=== PATIENT | female | born 1985 | race Caucasian/White ===

== ENCOUNTER 2017-02-01 18:37 | Emergency (ER) | payer MEDICAID ==
--- NOTE | 2017-02-01 20:27 | ER Document Report ---
ED Medical Screen (RME) - General Stated Complaint: WEAKNESS Notes: She states she was started on Risperdal, Cogentin and Klonopin one week ago. Has been having signs of dehydration to include dry mouth and weakness. Eyes fever but does have cough and congestion. States was re-seen by psych yesterday and medication dosages decreased. I have greeted and performed a rapid initial assessment of this patient. A comprehensive ED assessment and evaluation of the patient, analysis of test results and completion of the medical decision making process will be conducted by additional ED providers. - Related Data Allergies/Adverse Reactions: Penicillins Allergy (Severe, Verified 02/01/17 20:21) Anaphylaxis Physical Exam - Vital signs Vitals: Temp Pulse Resp BP Pulse Ox 98.6 F 87 19 125/71 97 02/01/17 19:48 02/01/17 19:48 02/01/17 19:48 02/01/17 19:48 02/01/17 19:48 - General General appearance: Appears well, Alert In distress: None Course - Vital Signs Vital signs: Temp Pulse Resp BP Pulse Ox 98.6 F 87 19 125/71 97 02/01/17 19:48 02/01/17 19:48 02/01/17 19:48 02/01/17 19:48 02/01/17 19:48
--- NOTE | 2017-02-01 21:49 | ER Document Report ---
HPI - HPI Onset: Other - 1 week Onset/Duration: Intermittent Pain Level: 4 Context: 31-year-old female recently moved here from [facility] was started back on Respinol, Cogentin, Klonopin for schizoaffective disorder and anxiety week and a half ago. She went back to mental health [facility] on Saturday and they increased her Risperdal to 2 mg at night because she was still hearing voices. The Cogentin is 2 mg per night. Klonopin is 0.5 mg twice a day. The past 2 days she has increased dizziness, unsteady gait, slurred speech with a mild headache and sore throat. She was told by [facility] today that if nothing else is wrong with her then they will adjust her medications on Saturday. They're here in the emergency room to see if anything is wrong with her. Female partner. She also takes BuSpar, Wellbutrin, Neurontin, Lexapro, and Naprosyn. Associated Symptoms: None Exacerbated by: Denies Relieved by: Denies Similar symptoms previously: No Recently seen / treated by doctor: No - ROS ROS below otherwise negative: Yes Systems Reviewed and Negative: Yes All other systems reviewed and negative - DERM Skin Color: Normal, [place] Past Medical History - General Information source: Patient, Relative - - Social History Smoking Status: Current Every Day Smoker Chew tobacco use (# tins/day): No Frequency of alcohol use: None Drug Abuse: None Lives with: Spouse/Significant other Family History: Reviewed & Not Pertinent - Medical History Medical History: Negative Renal/ Medical History: Denies: Hx Peritoneal Dialysis Surgical Hx: Negative Vertical Provider Document - CONSTITUTIONAL Agree With Documented VS: Yes Exam Limitations: No Limitations - HEENT HEENT: Normocephalic - NECK Neck: Supple. negative: Lymphadenopathy-Left, Lymphadenopathy-Right - RESPIRATORY Respiratory: Breath Sounds Normal, No Respiratory Distress O2 Sat by Pulse Oximetry: 97 - CARDIOVASCULAR Cardiovascular: Regular Rate, Regular Rhythm - GI/ABDOMEN Gastrointestinal: Abdomen Soft, Abdomen Non-Tender, No Organomegaly - MUSCULOSKELETAL/EXTREMETIES Musculoskeletal/Extremeties: MAEW, FROM - NEURO Level of Consciousness: Awake, Alert, Appropriate. negative: Slow to Respond, Confused, Agitated, Sedated Notes: gait stable - DERM Integumentary: Warm, Dry Course - Re-evaluation Re-evalutation: 02/01/17 23:10 Urinalysis shows RBCs and she is on her menses. No bacteria. Lab trying to get the blood. 02/02/17 00:24 Labs are all normal. I will instruct the patient to not take the Klonopin that this may be causing the unsteadiness in combination with the other medication - Vital Signs Vital signs: Temp Pulse Resp BP Pulse Ox 98.6 F 87 19 125/71 97 02/01/17 19:48 02/01/17 19:48 02/01/17 19:48 02/01/17 19:48 02/01/17 19:48 - Laboratory Result Diagrams: 02/01/17 23:30 02/01/17 23:30 Discharge - Discharge Clinical Impression: Dizziness, Unsteady gait, Medication side effect Condition: Good Disposition: HOME, SELF-CARE Instructions: Dizziness ([facility]) Additional Instructions: Stop the Klonopin Return to the emergency room if worse See [facility] on saturday for medication adjustment Please complete the patient satisfaction survey if you get one, and return it.. If you do not receive a survey, then you can go to the [facility] website, [email or web address] and place your comments about your very good care. Thank you very much. It was a pleasure being your medical provider today.
[2017-02-01 22:34] LABS: APPEARANCE,URINE SLIGHTLY-CLOUDY; BILIRUBIN,URINE NEGATIVE (NEGATIVE); GLUCOSE, URINE NEGATIVE (NEGATIVE); KETONES,URINE NEGATIVE (NEGATIVE); LEUKOCYTE ESTERASE,URINE TRACE (NEGATIVE); NITRITE,URINE NEGATIVE (NEGATIVE); PROTEIN,URINE 30 mg/dL (NEGATIVE); URINE SPECIFIC GRAVITY 1.021; UROBILINOGEN,URINE NEGATIVE mg/dL (<2.0)
[2017-02-01 22:54] LABS: URINE BARBITURATES SCREEN NEGATIVE; URINE METHADONE SCREEN NEGATIVE; URINE OPIATES LOW NEGATIVE; URINE PHENCYCLIDINE SCREEN NEGATIVE
[2017-02-01 23:40] LABS: ABSOLUTE EOSINOPHILS # (AUTO) 0.3 10^3/uL (0.0-0.6); ABSOLUTE LYMPHOCYTES (AUTO) 2.7 10^3/uL (0.5-4.7); ABSOLUTE MONOCYTES (AUTO) 0.5 10^3/uL (0.1-1.4); BASOPHILS % (AUTO) 0.2 % (0-2); EOSINOPHILS % (AUTO) 4.2 % (0-6); HEMATOCRIT 35.9 % (36.0-47.0); HEMOGLOBIN 11.5 g/dL (12.0-15.5); HGB HCT DIFFERENCE -1.4; LYMPHOCYTES % (AUTO) 35.3 % (13-45); MEAN CORPUSCULAR HEMOGLOBIN 25.4 pg (27.0-33.4); MEAN CORPUSCULAR HGB CONC 31.9 g/dL (32.0-36.0); MEAN CORPUSCULAR VOLUME 80 fl (80-97); MONOCYTES % (AUTO) 7.1 % (3-13); RED BLOOD COUNT 4.51 10^6/uL (3.72-5.28); RED CELL DISTRIBUTION WIDTH 16.5 % (11.5-14.0); SEGMENTED NEUTROPHILS % (AUTO) 53.2 % (42-78); WHITE BLOOD COUNT 7.5 10^3/uL (4.0-10.5)
[2017-02-01 23:57] LABS: ALANINE AMINOTRANSFERASE 30 U/L (9-52); ALBUMIN 3.7 g/dL (3.5-5.0); ALKALINE PHOSPHATASE 61 U/L (38-126); ANION GAP 8 (5-19); ASPARTATE AMINO TRANSFERASE 25 U/L (14-36); BILIRUBIN,TOTAL 0.2 mg/dL (0.2-1.3); BLOOD UREA NITROGEN 15 mg/dL (7-20); CALCIUM 8.8 mg/dL (8.4-10.2); CARBON DIOXIDE 25 mmol/L (22-30); CHLORIDE 108 mmol/L (98-107); CREATININE RESULT 0.71 mg/dL (0.52-1.25); GLUCOSE 84 mg/dL (75-110); POTASSIUM 4.4 mmol/L (3.6-5.0); SODIUM 140.8 mmol/L (137-145); TOTAL PROTEIN 6.4 g/dL (6.3-8.2)
[2017-02-01 23:59] LABS: ALCOHOL < 10 mg/dL (NONE DETECTED)
[2017-02-02 00:44] VITALS: BP 124/81
== END 2017-02-02 00:40 | disposition home or self-care (01) ==
LOC: ER 18:37
DX: R42 Dizziness and giddiness (principal); R26.81 Unsteadiness on feet; T50.905A Adverse effect of unspecified drugs, medicaments and biological substances, initial encounter; R47.81 Slurred speech; R51 Headache; J02.9 Acute pharyngitis, unspecified; F25.9 Schizoaffective disorder, unspecified; F41.9 Anxiety disorder, unspecified; F17.200 Nicotine dependence, unspecified, uncomplicated; Z79.899 Other long term (current) drug therapy
CPT/HCPCS: 36415; 80053; 80307; 81001; 84703; 85025; 87070; 87086; 87880; 99283

== ENCOUNTER 2017-02-04 18:21 | Emergency (ER) | payer MEDICAID ==
--- NOTE | 2017-02-04 19:26 | ER Document Report ---
ED General - General Chief Complaint: Altered Mental Status Stated Complaint: ALTERED MENTAL STATUS Mode of Arrival: Ambulatory Information source: Patient, Relative Notes: This is a 31-year-old female with a history of schizoaffective disorder and anxiety who presents for evaluation of altered mental status. Of note, patient just recently moved to the area and was recently placed back on her maintenance psychiatric medications to include Risperdal, Cogentin, Klonopin. She was seen here 3 days ago for unsteadiness and increased fatigue and at that point had a normal workup and was recommended to stop her Klonopin. She was instructed to follow-up with her psychiatric provider at [facility] today. However patient's spouse states that it were unable to get appointment today but she does have an appointment tomorrow for possible medication adjustment. Today, the patient to kidnap from [id number]. Upon awakening from her nap patient's spouse states that the patient was acting differently. Patient is not recognizing her life, and is not able to say the date correctly. Per the , the patient was adamant that the year was 2008. Reportedly this is a year of trauma for the patient and this is where she "returns to" from time to time. Patient's states that she just wants to make sure that medically everything is okay before they follow up with psychiatry tomorrow. Patient currently is very comfortable and calm. She states she has no complaints. She adamantly denies any thoughts of hurting herself or any else. - Related Data Allergies/Adverse Reactions: Penicillins Allergy (Severe, Verified 02/01/17 20:21) Anaphylaxis Past Medical History - General Information source: Patient, Relative - Social History Smoking Status: Former Smoker Family History: Reviewed & Not Pertinent Renal/ Medical History: Denies: Hx Peritoneal Dialysis - Immunizations Hx Diphtheria, Pertussis, Tetanus Vaccination: Yes Review of Systems - Review of Systems -: Yes ROS unobtainable due to patient's medical condition Physical Exam - Vital signs Vitals: Temp Pulse Resp BP Pulse Ox 98.1 F 91 18 136/85 H 96 02/04/17 18:26 02/04/17 18:26 02/04/17 18:26 02/04/17 18:26 02/04/17 18:26 - Notes Notes: PHYSICAL EXAMINATION: GENERAL: Well-appearing, obese hirsute adult female conversant and in no acute distress. HEAD: Atraumatic, normocephalic. EYES: Pupils equal round and reactive to light, extraocular movements intact, sclera anicteric, conjunctiva are normal. ENT: nares patent, oropharynx clear without exudates. Moist mucous membranes. NECK: Normal range of motion, supple without lymphadenopathy LUNGS: Breath sounds clear to auscultation bilaterally and equal. No wheezes rales or rhonchi. HEART: Regular rate and rhythm without murmurs ABDOMEN: Soft, nontender, normoactive bowel sounds. No guarding, no rebound. No masses appreciated. EXTREMITIES: Normal range of motion NEUROLOGICAL: Alert to person and place. States the year correctly but states "it's only because she already told me the date." She tells me she does not remember that the person with her is her . Cranial nerves grossly intact. Normal speech. No gross focal motor or sensory deficit appreciated. PSYCH: Normal mood, flat affect SKIN: Warm, Dry, normal turgor, no rashes or lesions noted. Course - Re-evaluation Re-evalutation: 02/04/17 22:19 Patient was reexamined and at this time she states that her memory has returned. She recognizes her spouse and she is alert and oriented 4. Again she denies any thoughts of hurting herself or others. Her states that something similar has happened in the past and it was secondary to a trauma response which took her back to the year 2008. Given that the patient is back to her baseline mental status, is not suicidal or a danger to herself or anyone else, and has scheduled psychiatric follow-up in the morning, she is deemed appropriate for discharge and outpatient follow-up. Patient in her family are very comfortable with this plan and questions were answered. - Vital Signs Vital signs: Temp Pulse Resp BP Pulse Ox 98.1 F 91 18 136/85 H 96 02/04/17 18:26 02/04/17 18:26 02/04/17 18:26 02/04/17 18:26 02/04/17 18:26 - Laboratory Result Diagrams: 02/04/17 20:58 02/04/17 20:58 Laboratory results interpreted by me: 02/04/17 20:58 Hgb 11.6 L Hct 35.6 L MCV 78 L MCH 25.5 L RDW 16.1 H Discharge - Discharge Clinical Impression: Memory loss Condition: Stable Disposition: HOME, SELF-CARE Additional Instructions: Continue your home medications as already prescribed. Keep your follow-up appointment tomorrow morning at the [facility] as already scheduled. Return to the emergency department for any worsening symptoms or concerns.
[2017-02-04 20:54] LABS: APPEARANCE,URINE CLEAR; BILIRUBIN,URINE NEGATIVE (NEGATIVE); GLUCOSE, URINE NEGATIVE (NEGATIVE); KETONES,URINE NEGATIVE (NEGATIVE); LEUKOCYTE ESTERASE,URINE NEGATIVE (NEGATIVE); NITRITE,URINE NEGATIVE (NEGATIVE); PROTEIN,URINE NEGATIVE (NEGATIVE); URINE SPECIFIC GRAVITY 1.011; UROBILINOGEN,URINE NEGATIVE mg/dL (<2.0)
[2017-02-04] MEDS ORDERED: ACETAMINOPHEN 325 MG TABLET PO ONE (21:05)
[2017-02-04] MEDS ORDERED: ACETAMINOPHEN 325 MG TABLET ONE (21:07)
[2017-02-04 21:10] LABS: URINE BARBITURATES SCREEN NEGATIVE; URINE METHADONE SCREEN NEGATIVE; URINE OPIATES LOW NEGATIVE; URINE PHENCYCLIDINE SCREEN NEGATIVE
[2017-02-04 21:20] LABS: ABSOLUTE BASOPHILS # (AUTO) 0.1 10^3/uL (0.0-0.2); ABSOLUTE EOSINOPHILS # (AUTO) 0.3 10^3/uL (0.0-0.6); ABSOLUTE LYMPHOCYTES (AUTO) 2.2 10^3/uL (0.5-4.7); ABSOLUTE MONOCYTES (AUTO) 0.5 10^3/uL (0.1-1.4); ABSOLUTE NEUT (AUTO) 4.9 10^3/uL (1.7-8.2); EOSINOPHILS % (AUTO) 3.8 % (0-6); HEMATOCRIT 35.6 % (36.0-47.0); HEMOGLOBIN 11.6 g/dL (12.0-15.5); HGB HCT DIFFERENCE -0.8; LYMPHOCYTES % (AUTO) 27.4 % (13-45); MEAN CORPUSCULAR HEMOGLOBIN 25.5 pg (27.0-33.4); MEAN CORPUSCULAR HGB CONC 32.7 g/dL (32.0-36.0); MEAN CORPUSCULAR VOLUME 78 fl (80-97); MONOCYTES % (AUTO) 5.8 % (3-13); RED BLOOD COUNT 4.55 10^6/uL (3.72-5.28); RED CELL DISTRIBUTION WIDTH 16.1 % (11.5-14.0); WHITE BLOOD COUNT 7.8 10^3/uL (4.0-10.5)
[2017-02-04 21:34] LABS: ALANINE AMINOTRANSFERASE 31 U/L (9-52); ALBUMIN 3.8 g/dL (3.5-5.0); ALKALINE PHOSPHATASE 78 U/L (38-126); ANION GAP 10 (5-19); ASPARTATE AMINO TRANSFERASE 27 U/L (14-36); BILIRUBIN,DIRECT 0.1 mg/dL (0.0-0.4); BILIRUBIN,TOTAL 0.3 mg/dL (0.2-1.3); BLOOD UREA NITROGEN 11 mg/dL (7-20); CALCIUM 9.1 mg/dL (8.4-10.2); CARBON DIOXIDE 28 mmol/L (22-30); CHLORIDE 105 mmol/L (98-107); CREATININE RESULT 0.72 mg/dL (0.52-1.25); GLUCOSE 86 mg/dL (75-110); POTASSIUM 4.5 mmol/L (3.6-5.0); SODIUM 143.2 mmol/L (137-145); TOTAL PROTEIN 6.6 g/dL (6.3-8.2)
[2017-02-04 21:35] LABS: ALCOHOL < 10 mg/dL (NONE DETECTED)
[2017-02-04 22:46] VITALS: BP 107/59
== END 2017-02-04 22:51 | disposition home or self-care (01) ==
LOC: ER 18:21
DX: R41.3 Other amnesia (principal); F25.9 Schizoaffective disorder, unspecified; F41.9 Anxiety disorder, unspecified; Z88.0 Allergy status to penicillin; Z87.891 Personal history of nicotine dependence
CPT/HCPCS: 99285; 36415; 80307 ×2; 85025; 81025; 80053; 81001; J3490

== ENCOUNTER 2017-02-09 21:24 | Emergency (ER) | payer MEDICAID ==
[2017-02-09 21:30] VITALS: BP 141/46
--- NOTE | 2017-02-09 21:40 | ER Document Report ---
ED Medical Screen (RME) - General Chief Complaint: Shoulder Pain Stated Complaint: SHOULDER/BACK PAIN Mode of Arrival: Ambulatory Information source: Patient Notes: Patient presents to the emergency department with low back pain left shoulder pain. Reports history of chronic back pain. She reports she takes Neurontin for chronic pain and anxiety. Denies trauma. Patient moving left arm without problems I have greeted and performed a rapid initial assessment of this patient. A comprehensive ED assessment and evaluation of the patient, analysis of test results and completion of the medical decision making process will be conducted by additional ED providers. - Related Data Allergies/Adverse Reactions: Penicillins Allergy (Severe, Verified 02/01/17 20:21) Anaphylaxis Past Medical History Renal/ Medical History: Denies: Hx Peritoneal Dialysis Psychiatric Medical History: Reports: Hx Bipolar Disorder, Hx Schizophrenia - Immunizations Hx Diphtheria, Pertussis, Tetanus Vaccination: Yes Physical Exam - Vital signs Vitals: Temp Pulse Resp BP Pulse Ox 98.0 F 90 16 141/46 H 98 02/09/17 21:29 02/09/17 21:29 02/09/17 21:29 02/09/17 21:29 02/09/17 21:29 Course - Vital Signs Vital signs: Temp Pulse Resp BP Pulse Ox 98.0 F 90 16 141/46 H 98 02/09/17 21:29 02/09/17 21:29 02/09/17 21:29 02/09/17 21:29 02/09/17 21:29
== END 2017-02-10 00:20 | disposition left against medical advice (07) ==
LOC: ER 21:24
DX: Z53.9 Procedure and treatment not carried out, unspecified reason (principal); M25.512 Pain in left shoulder; M54.9 Dorsalgia, unspecified; G89.29 Other chronic pain; Z79.899 Other long term (current) drug therapy
CPT/HCPCS: 99281

== ENCOUNTER 2017-06-11 12:21 | Emergency (ER) | payer OTHER, MEDICAID ==
--- NOTE | 2017-06-11 12:36 | ER Document Report ---
ED Medical Screen (RME) - General Chief Complaint: Suicidal Ideation Stated Complaint: PSYCH EVALUATION Time Seen by Provider: 06/11/17 12:33 Notes: Patient states that she is having problems with feeling suicidal and hearing voices. She denies any ingestions. TRAVEL OUTSIDE OF THE [place] IN LAST 30 DAYS: No - Related Data Allergies/Adverse Reactions: Penicillins Allergy (Severe, Verified 06/11/17 12:23) Anaphylaxis Past Medical History Renal/ Medical History: Denies: Hx Peritoneal Dialysis Psychiatric Medical History: Reports: Hx Bipolar Disorder, Hx Schizophrenia - Immunizations Hx Diphtheria, Pertussis, Tetanus Vaccination: Yes Physical Exam - Vital signs Vitals: Temp Pulse Resp BP Pulse Ox 98.3 F 112 H 24 H 151/85 H 97 06/11/17 12:25 06/11/17 12:25 06/11/17 12:25 06/11/17 12:25 06/11/17 12:25 Course - Vital Signs Vital signs: Temp Pulse Resp BP Pulse Ox 98.3 F 112 H 24 H 151/85 H 97 06/11/17 12:25 06/11/17 12:25 06/11/17 12:25 06/11/17 12:25 06/11/17 12:25
--- NOTE | 2017-06-11 12:53 | EKG REPORT ---
SEVERITY:- BORDERLINE ECG - SINUS RHYTHM INFERIOR Q WAVES, PROBABLY NORMAL VARIATION : Confirmed by: Cindy Lauren MD 11-Jun-2017 12:52:29
[2017-06-11 13:11] LABS: ABSOLUTE BASOPHILS # (AUTO) 0.1 10^3/uL (0.0-0.2); ABSOLUTE EOSINOPHILS # (AUTO) 0.1 10^3/uL (0.0-0.6); ABSOLUTE LYMPHOCYTES (AUTO) 1.6 10^3/uL (0.5-4.7); ABSOLUTE MONOCYTES (AUTO) 0.3 10^3/uL (0.1-1.4); ABSOLUTE NEUT (AUTO) 5.3 10^3/uL (1.7-8.2); BASOPHILS % (AUTO) 1.2 % (0-2); EOSINOPHILS % (AUTO) 1.8 % (0-6); HEMATOCRIT 35.1 % (36.0-47.0); HEMOGLOBIN 11.4 g/dL (12.0-15.5); HGB HCT DIFFERENCE -0.9; MEAN CORPUSCULAR HEMOGLOBIN 24.9 pg (27.0-33.4); MEAN CORPUSCULAR HGB CONC 32.5 g/dL (32.0-36.0); MEAN CORPUSCULAR VOLUME 77 fl (80-97); MONOCYTES % (AUTO) 3.9 % (3-13); RED BLOOD COUNT 4.59 10^6/uL (3.72-5.28); RED CELL DISTRIBUTION WIDTH 17.6 % (11.5-14.0); SEGMENTED NEUTROPHILS % (AUTO) 71.1 % (42-78); WHITE BLOOD COUNT 7.5 10^3/uL (4.0-10.5)
[2017-06-11 13:23] LABS: APPEARANCE,URINE SLIGHTLY-CLOUDY; BILIRUBIN,URINE NEGATIVE (NEGATIVE); GLUCOSE, URINE NEGATIVE (NEGATIVE); KETONES,URINE NEGATIVE (NEGATIVE); LEUKOCYTE ESTERASE,URINE NEGATIVE (NEGATIVE); NITRITE,URINE NEGATIVE (NEGATIVE); PROTEIN,URINE 30 mg/dL (NEGATIVE); URINE SPECIFIC GRAVITY 1.012; UROBILINOGEN,URINE NEGATIVE mg/dL (<2.0)
[2017-06-11 13:25] LABS: ALANINE AMINOTRANSFERASE 32 U/L (9-52); ALBUMIN 3.9 g/dL (3.5-5.0); ALKALINE PHOSPHATASE 58 U/L (38-126); ANION GAP 12 (5-19); ASPARTATE AMINO TRANSFERASE 25 U/L (14-36); BILIRUBIN,DIRECT 0.3 mg/dL (0.0-0.4); BILIRUBIN,TOTAL 0.4 mg/dL (0.2-1.3); BLOOD UREA NITROGEN 11 mg/dL (7-20); CALCIUM 9.2 mg/dL (8.4-10.2); CARBON DIOXIDE 26 mmol/L (22-30); CHLORIDE 105 mmol/L (98-107); CREATININE RESULT 0.94 mg/dL (0.52-1.25); GLUCOSE 146 mg/dL (75-110); POTASSIUM 4.3 mmol/L (3.6-5.0); SODIUM 143.2 mmol/L (137-145); TOTAL PROTEIN 6.9 g/dL (6.3-8.2)
[2017-06-11 13:32] LABS: ALCOHOL < 10 mg/dL (NONE DETECTED)
[2017-06-11 13:34] LABS: URINE BARBITURATES SCREEN NEGATIVE; URINE METHADONE SCREEN NEGATIVE; URINE OPIATES LOW NEGATIVE; URINE PHENCYCLIDINE SCREEN NEGATIVE
--- NOTE | 2017-06-11 14:13 | ER Document Report ---
ED Psych Disorder / Suicide - General Mode of Arrival: Ambulatory Information source: Patient TRAVEL OUTSIDE OF THE [place] IN LAST 30 DAYS: No - HPI Patient complains to provider of: Hallucinating, Suicidal ideation <AZUCENA RUANO - Last Filed: 06/11/17 14:30> <ETELVINA NORTON - Last Filed: 06/11/17 15:28> - General Chief Complaint: Suicidal Ideation Stated Complaint: PSYCH EVALUATION Time Seen by Provider: 06/11/17 12:33 Notes: Patient is a 32 year old female who presents to the ED with complaints of auditory hallucinations and suicidal ideations. Patient states she has been not feeling herself lately and has been depressed. Patient was at Dr. Diaz office today and was sent to the ED for evaluation. Patient told her that she was going to listen to the voices. Patient states the voices are telling her to hurt herself. Patient states she has heard the voices since Saturday and has been suicidal for a couple days. Patients states that she had an episode last night where she had a memory lapse and didnt know anyone. This morning patient knew who people were again. Patient states she has attempted suicide in the past by overdosing. Patient states she has not missed any of her daily medication doses. (AZUCENA RUANO) - Related Data Allergies/Adverse Reactions: Penicillins Allergy (Severe, Verified 06/11/17 12:23) Anaphylaxis Home Medications: Current Home Medications Benztropine Mesylate [Cogentin 1 mg Tablet] 0.5 tab PO DAILY 06/11/17 [History] Bupropion HCl [Wellbutrin Sr 150 mg Tablet] 1 tab PO DAILY 06/11/17 [History] Gabapentin 800 mg PO TID 06/11/17 [History] Risperidone [Risperdal 1 mg Tablet] 1 mg PO DAILY 06/11/17 [History] Zolpidem Tartrate [Ambien 5 mg Tablet] PO DAILYP PRN 06/11/17 [History] Past Medical History - General Information source: Patient - Social History Smoking Status: Current Every Day Smoker Chew tobacco use (# tins/day): No Frequency of alcohol use: None Drug Abuse: None Family History: Reviewed & Not Pertinent Patient has suicidal ideation: Yes Patient has homicidal ideation: No Renal/ Medical History: Denies: Hx Peritoneal Dialysis Psychiatric Medical History: Reports: Hx Bipolar Disorder, Hx Schizophrenia Past Surgical History: Reports: Hx Abdominal Surgery - hernia repair, Hx Section - Immunizations Hx Diphtheria, Pertussis, Tetanus Vaccination: Yes <AZUCENA RUANO - Last Filed: 06/11/17 14:30> Review of Systems - Review of Systems Constitutional: No symptoms reported EENT: No symptoms reported Cardiovascular: No symptoms reported Respiratory: No symptoms reported Gastrointestinal: No symptoms reported Genitourinary: No symptoms reported Female Genitourinary: No symptoms reported Musculoskeletal: No symptoms reported Skin: No symptoms reported Hematologic/Lymphatic: No symptoms reported Neurological/Psychological: See HPI, Hallucinations, Suicidal ideation <AZUCENA RUANO - Last Filed: 06/11/17 14:30> Physical Exam - General General appearance: Appears well, Alert In distress: None - HEENT Head: Normocephalic, Atraumatic Eyes: Normal Extraocular movements intact: Yes Pupils: PERRL - Respiratory Respiratory status: No respiratory distress Breath sounds: Normal - Cardiovascular Rhythm: Regular Heart sounds: Normal auscultation Murmur: No - Abdominal Inspection: Obese Tenderness: Nontender - Back Back: Normal - Extremities General upper extremity: Normal inspection, Normal ROM General lower extremity: Normal inspection, Normal ROM - Neurological Neuro grossly intact: Yes - Psychological Associated symptoms: Normal affect, Normal mood - Skin Skin Temperature: Warm Skin Moisture: Dry Skin Color: Normal <AZUCENA RUANO - Last Filed: 06/11/17 14:30> Course - Laboratory Result Diagrams: 06/11/17 12:54 06/11/17 12:54 <AZUCENA RUANO - Last Filed: 06/11/17 14:30> - Laboratory Result Diagrams: 06/11/17 12:54 06/11/17 12:54 <ETELVINA NORTON - Last Filed: 06/11/17 15:28> - Vital Signs Vital signs: Temp Pulse Resp BP Pulse Ox 98.3 F 112 H 24 H 151/85 H 97 06/11/17 12:25 06/11/17 12:25 06/11/17 12:25 06/11/17 12:25 06/11/17 12:25 - Laboratory Laboratory results interpreted by me: 06/11/17 06/11/17 06/11/17 12:54 12:54 13:00 Hgb 11.4 L Hct 35.1 L MCV 77 L MCH 24.9 L RDW 17.6 H Glucose 146 H Urine Protein 30 H Urine Blood LARGE H Acetaminophen < 10 L Scribe Documentation - Scribe Written by Lou:: lou Bustamante, 06/11/2017, 1414 acting as scribe for :: Osvaldo <AZUCENA RUANO - Last Filed: 06/11/17 14:30>
[2017-06-11] MEDS ORDERED: FLUOXETINE HCL 20 MG CAPSULE PO SCH (17:15)
[2017-06-11] MEDS ORDERED: BENZTROPINE MESYLATE 1 MG TABLET PO SCH (17:15)
[2017-06-11] MEDS ORDERED: RISPERIDONE 1 MG TABLET PO SCH (17:15)
[2017-06-11] MEDS ORDERED: GABAPENTIN 300 MG CAPSULE PO SCH (18:00)
[2017-06-11 21:28] VITALS: BP 136/84
== END 2017-06-11 21:00 | disposition home or self-care (01) ==
LOC: ER 12:21
DX: F32.9 Major depressive disorder, single episode, unspecified (principal); R45.851 Suicidal ideations; R44.0 Auditory hallucinations; F20.9 Schizophrenia, unspecified; Z91.5 Personal history of self-harm; E66.9 Obesity, unspecified; F17.200 Nicotine dependence, unspecified, uncomplicated; Z79.899 Other long term (current) drug therapy; Z68.43 Body mass index [BMI] 50.0-59.9, adult
CPT/HCPCS: 93005; 99285; 36415; 80307 ×4; 84703; 85025; 80053; 81001; 93010; J3490

== ENCOUNTER 2017-07-02 18:38 | Emergency (ER) | payer MEDICAID, OTHER ==
[2017-07-02] MEDS ORDERED: DIPHENHYDRAMINE HCL 50 MG CAPSULE PO ONE (18:56)
[2017-07-02] MEDS ORDERED: PROCHLORPERAZINE MALEATE 5 MG TABLET PO ONE (18:56)
--- NOTE | 2017-07-02 19:10 | ER Document Report ---
ED General - General Chief Complaint: Memory Loss Stated Complaint: MEMORY LOSS, HEADACHE Time Seen by Provider: 07/02/17 18:55 Mode of Arrival: Ambulatory Information source: Patient, Relative Notes: 32-year-old female presents with her with concerns of headache memory loss. Patient has history of schizoaffective disorder and every few months has episodes of headache where she forgets things. This has happened many times in the past. Patient today forgot who her was and attempted to run away from her. Patient denies any fevers or chills nausea vomiting or diarrhea admits to mild headache states this is not the worse headache she has ever had TRAVEL OUTSIDE OF THE [place] IN LAST 30 DAYS: No - HPI Onset: Just prior to arrival Onset/Duration: Sudden Quality of pain: Achy Severity: Mild Pain Level: 1 Associated symptoms: Headache, Other Exacerbated by: Denies Relieved by: Denies Similar symptoms previously: Yes Recently seen / treated by doctor: Yes - Related Data Allergies/Adverse Reactions: Penicillins Allergy (Severe, Verified 07/02/17 18:43) Anaphylaxis Past Medical History - Social History Smoking Status: Former Smoker Cigarette use (# per day): No Chew tobacco use (# tins/day): No Smoking Education Provided: No Frequency of alcohol use: Occasional Drug Abuse: None Family History: Reviewed & Not Pertinent Patient has suicidal ideation: No Patient has homicidal ideation: No Renal/ Medical History: Denies: Hx Peritoneal Dialysis Psychiatric Medical History: Reports: Hx Bipolar Disorder, Hx Schizophrenia Past Surgical History: Reports: Hx Abdominal Surgery - hernia repair, Hx Section - Immunizations Hx Diphtheria, Pertussis, Tetanus Vaccination: Yes Review of Systems - Review of Systems Notes: REVIEW OF SYSTEMS: CONSTITUTIONAL : Denies fever, chills, or sweats. Denies recent illness. EENT: Denies eye, ear, throat, or mouth pain or symptoms. Denies nasal or sinus congestion or discharge. Denies throat, tongue, or mouth swelling or difficulty swallowing. CARDIOVASCULAR: Denies chest pain. Denies palpitations or racing or irregular heart beat. Denies ankle edema. RESPIRATORY: Denies cough, cold, or chest congestion. Denies shortness of breath, difficulty breathing, or wheezing. GASTROINTESTINAL: Denies abdominal pain or distention. Denies nausea, vomiting , or diarrhea. Denies blood in vomitus, stools, or per rectum. Denies black, tarry stools. Denies constipation. GENITOURINARY: Denies difficulty urinating, painful urination, burning, frequency, blood in urine, or discharge. FEMALE GENITOURINARY: Denies vaginal bleeding, heavy or abnormal periods, irregular periods. Denies vaginal discharge or odor. MUSCULOSKELETAL: Denies back or neck pain or stiffness. Denies joint pain or swelling. SKIN: Denies rash, lesions or sores. HEMATOLOGIC : Denies easy bruising or bleeding. LYMPHATIC: Denies swollen, enlarged glands. NEUROLOGICAL: admits ot headache, confusion PSYCHIATRIC: Denies anxiety or stress. Denies depression, suicidal ideation, or homicidal ideation. ALL OTHER SYSTEMS REVIEWED AND NEGATIVE. PHYSICAL EXAMINATION: GENERAL: Well-appearing, well-nourished and in no acute distress. HEAD: Atraumatic, normocephalic. EYES: Pupils equal round and reactive to light, extraocular movements intact, conjunctiva are normal. ENT: Nares patent, oropharynx clear without exudates. Moist mucous membranes. NECK: Normal range of motion, supple without lymphadenopathy LUNGS: Breath sounds clear to auscultation bilaterally and equal. No wheezes rales or rhonchi. HEART: Regular rate and rhythm without murmurs ABDOMEN: Soft, nontender, nondistended abdomen. No guarding, no rebound. No masses appreciated. Female : deferred Musculoskeletal: Normal range of motion, no pitting or edema. No cyanosis. NEUROLOGICAL: Cranial nerves grossly intact. Normal speech, normal gait. Normal sensory, motor exams PSYCH: Normal mood, normal affect. SKIN: Warm, Dry, normal turgor, no rashes or lesions noted. Dictation was performed using [employer] voice recognition software Course - Re-evaluation Re-evalutation: 07/02/17 19:09 This appears to be a intermittently chronic issue with this patient, she otherwise looks well is in distress significant other states it takes anywhere from 8 hours to 3 days before her memory comes back. CT of the head has been ordered but I expect no acute abnormalities to be noted 07/02/17 20:00 CT head was negative, patient notes her headache is completely resolved. Patient's memory has not improved yet but she states that she feels safe going home with her significant other. I will discharge home at this time to follow- up with her own primary care physician After performing a Medical Screening Examination, I estimate there is LOW risk for ACUTE GLAUCOMA, TEMPORAL ARTERITIS, MENINGITIS, INCRANIAL HEMORRHAGE, or ISCHEMIC STROKE thus I consider the discharge disposition reasonable. I have reevaluated this patient multiple times and no significant life threatening changes are noted. The patient and I have discussed the diagnosis and risks, and we agree with discharging home with close follow-up with the understanding that symptoms and presentations can change. We also discussed returning to the Emergency Department immediately if new or worsening symptoms occur. We have discussed the symptoms which are most concerning (e.g., changing or worsening symptoms, new numbness or weakness, vomiting, fever) that necessitate immediate return. - Diagnostic Test Radiology reviewed: Image reviewed, Reports reviewed - No acute abnormality Discharge - Discharge Clinical Impression: Memory loss Headache Qualifiers: Headache type: unspecified Headache chronicity pattern: acute headache Intractability: not intractable Qualified Code(s): R51 - Headache Condition: Stable Disposition: HOME, SELF-CARE Instructions: Migraine Headache ([facility]) Referrals: SUSANA SÁNCHEZ MD [ACTIVE STAFF] - Follow up tomorrow
--- NOTE | 2017-07-02 19:25 | RADIOLOGY REPORT (SQ) ---
EXAM DESCRIPTION: CT HEAD WITHOUT COMPLETED DATE/TIME: 07/02/2017 7:17 pm REASON FOR STUDY: headache confusion COMPARISON: None. TECHNIQUE: Axial images acquired through the brain without intravenous contrast. Images reviewed wi th bone, brain and subdural windows. Images stored on PACS. All CT scanners at this facility use dose modulation, iterative reconstruction, and/or weight based d osing when appropriate to reduce radiation dose to as low as reasonably achievable (ALARA). [facility]: Dose Right [facility]: CareDose [facility]: Dose Right [facility]: Teradose 4D [facility]: The Kitchen Hotline RADIATION DOSE: mGy. LIMITATIONS: None. FINDINGS: VENTRICLES: Normal size and contour. CEREBRUM: No masses. No hemorrhage. No midline shift. Normal tran/white matter differentiation. N o evidence for acute infarction. CEREBELLUM: No masses. No hemorrhage. No alteration of density. No evidence for acute infarction. EXTRAAXIAL SPACES: No fluid collections. No masses. ORBITS AND GLOBE: No intra- or extraconal masses. Normal contour of globe without masses. CALVARIUM: No fracture. PARANASAL SINUSES: No fluid or mucosal thickening. SOFT TISSUES: No mass or hematoma. OTHER: No other significant finding. IMPRESSION: NORMAL BRAIN CT WITHOUT CONTRAST. TECHNICAL DOCUMENTATION: JOB ID: [id number] Quality ID # [id number]: Final reports with documentation of one or more dose reduction techniques (e.g., Au tomated exposure control, adjustment of the mA and/or kV according to patient size, use of iterative reconstruction technique) 2010 [employer]- All Rights Reserved
[2017-07-02 20:06] VITALS: BP 134/81
== END 2017-07-02 20:28 | disposition home or self-care (01) ==
LOC: ER 18:38
DX: R41.3 Other amnesia (principal); R51 Headache; Z87.891 Personal history of nicotine dependence
CPT/HCPCS: 99285; 82962; 70450; J3490; S0183